=== PATIENT | female | born 1975 | race Caucasian/White ===

== ENCOUNTER → 2020-07-27 09:09 | Outpatient (BNVA) | payer SELFPAY | PROVIDERS: Visit Provider Family Medicine | DX: Z00.00 Encounter for general adult medical examination without abnormal findings (principal); Z13.6 Encounter for screening for cardiovascular disorders | CPT/HCPCS: 80061; 82947; 83036 ==

== ENCOUNTER → 2024-11-14 08:06 | Outpatient (BNVA) | payer SELFPAY | PROVIDERS: Visit Provider Dermatology | DX: Z13.9 Encounter for screening, unspecified (principal) | CPT/HCPCS: 80053; 80061; 82306; 83036; 84443; 85025 ==